=== PATIENT | female | born 1995 | race Caucasian/White ===

== ENCOUNTER 2018-04-05 02:44 | Emergency (ER) | payer BC, MEDICAID ==
[~2018-04-05] VITALS: Ht 167.6 cm; Wt 112.5 kg
[~2018-04-05 02:44] MED LIST: ONDA8TAB9 PO; PANT-47 PO
[2018-04-05 02:52] VITALS: BP 158/98
[2018-04-05] MEDS ORDERED: predniSONE 20 mg tablet PO ONE (03:15)
[2018-04-05] MEDS ORDERED: diphenhydrAMINE 25mg capsule PO ONE (03:15)
[2018-04-05] MEDS ORDERED: ondansetron 4mg rapidly disintigrating tab PO ONE (03:20)
== END 2018-04-05 04:25 | disposition home or self-care (01) ==
LOC: ER 02:45
DX: T78.40XA Allergy, unspecified, initial encounter (principal); K21.9 Gastro-esophageal reflux disease without esophagitis; E11.9 Type 2 diabetes mellitus without complications; X58.XXXA Exposure to other specified factors, initial encounter
CPT/HCPCS: 99284; J7512; Q0163